=== PATIENT | female | born 1980 | race Caucasian/White ===

== ENCOUNTER → 2018-02-09 | Outpatient (REF) | payer BC ==
[2018-02-09 19:01] LABS: ALBUMIN 3.9 GM/DL (3.2-5.2); ALBUMIN/GLOBULIN RATIO 1.22 (1.00-1.93); ALKALINE PHOSPHATASE 60 U/L (45-117); ALT/SGPT 16 U/L (12-78); ANION GAP 5 MEQ/L (8-16); AST/SGOT 14 U/L (7-37); BILIRUBIN,TOTAL 0.3 MG/DL (0.2-1.0); BLOOD UREA NITROGEN 8 MG/DL (7-18); CALCIUM LEVEL 8.8 MG/DL (8.5-10.1); CARBON DIOXIDE LEVEL 27 MEQ/L (21-32); CHLORIDE LEVEL 108 MEQ/L (98-107); GLOMERULAR FILTRATION RATE > 60.0 (>60); GLUCOSE, FASTING 81 MG/DL (70-100); POTASSIUM SERUM 4.2 MEQ/L (3.5-5.1); SODIUM LEVEL 140 MEQ/L (136-145); TOTAL PROTEIN 7.1 GM/DL (6.4-8.2)
[2018-02-09 19:02] LABS: BASO % 0.4 % (0.0-1.0); EOS # 0.1 10^3/uL (0.0-0.50); EOS % 0.9 % (0.0-3.0); HEMATOCRIT 40.3 % (36.0-47.0); HEMOGLOBIN 13.2 g/dl (12.0-16.0); IMMATURE GRANULOCYTE % 0.2 % (0-3.0); LYMPH # 1.9 10^3/uL (1.5-4.5); LYMPH % 36.2 % (24.0-44.0); MEAN CORPUSCULAR HGB CONC 32.8 g/dl (32.0-36.5); MEAN CORPUSCULAR VOLUME 97.6 fl (80.0-96.0); MONO # 0.2 10^3/uL (0.0-0.8); MONO % 4.6 % (0.0-5.0); NEUTROPHILS % 57.7 % (36.0-66.0); PLATELET COUNT, AUTOMATED 306 10^3/uL (150-450); RED BLOOD COUNT 4.13 10^6/uL (4.00-5.40); RED CELL DISTRIBUTION WIDTH 12.3 % (11.5-14.5); WHITE BLOOD COUNT 5.3 10^3/uL (4.0-10.0)
== END ==
LOC: M LABNEURO 12:58
DX: G35 Multiple sclerosis (principal)
CPT/HCPCS: 80053